=== PATIENT | female | born 1935 | race Caucasian/White ===

== ENCOUNTER 2016-09-07 16:22 | Observation (INO) | payer MEDICARE ==
[~2016-09-07 16:22] MED LIST: Sodium Chloride 0.9% 1,000 ML BAG ONE
[2016-09-07 17:07] LABS: #Basophils 0.1 thou/uL (0.0-0.2); #Lymphocytes 1.2 thou/uL (1.20-3.40); #Monocytes 0.9 thou/uL (0.11-0.59); #Neutrophils 11.1 thou/uL (1.40-6.50); %Basophils 0.6 % (0.0-1.0); %Eosinophils 0.2 % (0.0-10.0); %Lymphocytes 8.7 % (21.0-51.0); %Monocytes 6.5 % (0.0-10.0); %Neutrophils 84.1 % (42.0-75.0); Hemoglobin 12.9 g/dL (12.0-16.0); Mean Corpuscular HGB CONC 33.7 g/dL (32.0-36.0); Mean Corpuscular Hemoglobin 30.8 pg (27.0-31.0); Mean Corpuscular Volume 91.2 fl (81.0-99.0); Mean Platelet Volume 6.9 fL (7.4-10.4); Platelet Count 160 thou/uL (130-400); RBC Distribution Width 12.5 % (11.5-14.5); Red Blood Cell (RBC) Count 4.18 mill/uL (4.20-5.40); White Blood Cell (WBC) Count 13.2 thou/uL (4.8-10.8)
[2016-09-07 17:21] LABS: ALT (SGPT) 17 U/L (8-55); AST (SGOT) 21 U/L (5-34); Albumin 3.9 g/dL (3.4-4.8); Alkaline Phosphatase 58 U/L (40-150); Anion Gap 15 mmol/L (10-20); Bilirubin, Total 1.2 mg/dL (0.2-1.2); Calc. Creatinine Clearance 0 mL/min (70-130); Calcium 9.2 mg/dL (7.8-10.44); Carbon Dioxide 23 mmol/L (23-31); Chloride 100 mmol/L (98-107); Estimated GFR-MDRD 67; Globulin 3.1 g/dL (2.4-3.5); Glucose 190 mg/dL (83-110); Potassium 3.4 mmol/L (3.5-5.1); Sodium 135 mmol/L (136-145)
[2016-09-07 17:23] LABS: BUN (Urea Nitrogen) 15 mg/dL (9.8-20.1)
[2016-09-07 18:01] LABS: Bilirubin Negative (Negative); Blood, Urine Trace (Negative); Clarity Clear (Clear); Glucose, Urine (Dipstick) 100 mg/dL (Negative); Leukocyte Negative (Negative); Nitrite Negative (Negative); Protein, Urine (Dipstick) Trace mg/dL (Neg-Trace); Urobilinogen 0.2 mg/dL (0.2-1.0)
[2016-09-07 18:25] LABS: Bacteria/HPF Rare-Few HPF (None Seen); RBC/HPF 0-3 HPF (0-3); Squamous Epithelial 0-3 HPF (0-3); WBC/HPF 0-3 HPF (0-3)
[2016-09-07] MEDS ORDERED: Acetaminophen 500 MG TAB ONE (19:19)
[2016-09-07 20:38] VITALS: BMI 25.9
[2016-09-07] MEDS ORDERED: Ondansetron ODT 4 MG TAB PO PRN (20:46)
[2016-09-07] MEDS ORDERED: Acetaminophen 325 MG TAB PO PRN (20:46)
[2016-09-07] MEDS: Sodium Chloride 0.9% 1,000 ML IV SCH (22:04)
[2016-09-08 05:10] LABS: Anion Gap 15 mmol/L (10-20); Calc. Creatinine Clearance 70 mL/min (70-130); Calcium 8.4 mg/dL (7.8-10.44); Carbon Dioxide 22 mmol/L (23-31); Chloride 106 mmol/L (98-107); Estimated GFR-MDRD 78; Glucose 173 mg/dL (83-110); Sodium 140 mmol/L (136-145)
[2016-09-08 05:12] LABS: #Basophils 0.1 thou/uL (0.0-0.2); #Eosinphils 0.1 thou/uL (0.0-0.7); #Lymphocytes 1.1 thou/uL (1.20-3.40); #Monocytes 0.7 thou/uL (0.11-0.59); #Neutrophils 7.5 thou/uL (1.40-6.50); %Basophils 0.7 % (0.0-1.0); %Eosinophils 1.4 % (0.0-10.0); %Lymphocytes 11.5 % (21.0-51.0); %Monocytes 7.2 % (0.0-10.0); %Neutrophils 79.3 % (42.0-75.0); Hemoglobin 11.9 g/dL (12.0-16.0); Mean Corpuscular HGB CONC 35.1 g/dL (32.0-36.0); Mean Corpuscular Hemoglobin 32.1 pg (27.0-31.0); Mean Corpuscular Volume 91.4 fl (81.0-99.0); Mean Platelet Volume 8.1 fL (7.4-10.4); PLT Morphology Comment Appears Decreased; Platelet Count 119 thou/uL (130-400); Red Blood Cell (RBC) Count 3.69 mill/uL (4.20-5.40); White Blood Cell (WBC) Count 9.5 thou/uL (4.8-10.8)
[2016-09-08 05:14] LABS: BUN (Urea Nitrogen) 12 mg/dL (9.8-20.1); Manual Diff?? NO
[2016-09-08] MEDS ORDERED: Sodium Chloride 0.9% 1,000 ML BAG ONE (05:54)
[2016-09-08] MEDS: Sodium Chloride 0.9% 1,000 ML IV SCH (07:31)
[2016-09-08 07:52] VITALS: BP 110/58; TEMP 99.2
[2016-09-08] MEDS ORDERED: metFORMIN HCl XR 500 MG TAB PO SCH ×2 (08:00→09:00)
[2016-09-08] MEDS ORDERED: Polyethylene Glycol 3350 17 GM Packet PO SCH (09:00)
[2016-09-08] MEDS ORDERED: Non-Formulary Item 1 EACH (Lisinopril [Lisinopril] 40 MG) PO SCH (09:00)
[2016-09-08] MEDS ORDERED: Non-Formulary Item 1 EACH (Metformin Hcl [Metformin Hcl Er] 500 MG) PO SCH ×2 (09:00)
[2016-09-08] MEDS ORDERED: Lisinopril 10 MG TAB PO SCH ×2 (09:00)
[2016-09-08] MEDS ORDERED: Hydrochlorothiazide 25 MG TAB PO SCH ×2 (09:00)
--- NOTE | 2016-09-08 13:38 | SS ---
ADMITTING PHYSICIAN: Coby Zeng M.D. CHIEF COMPLAINT: Subjective fever, chills, generalized weakness and body aches. BRIEF HOSPITAL COURSE: Ms. Dinh is an 81-year-old female with history of diabetes type 2 and hypertension with PCP in [facility] [place] who presented today to the emergency room due to subjective fever, weakness, chills, sore throat. The patient states symptoms started 2 days ago and have progressively worsened. She also stated weakness progressed and she had a fall at her home yesterday where she hurt her back. She reports some abdominal pain, some mild anorexia. No vomiting, no diarrhea, no sick contacts at home. The patient lives in a home by herself, her daughter lives close by and checks up on her frequently. The patient was evaluated in the emergency room. She had a 100.4 temperature. She was visibly wobbly and weak. Urine showed no acute urinary symptoms. Flu test was negative. WBC was slightly elevated. In the emergency room, she was given some IV fluids but she was still very weak. She was noted to be wobbly on her feet and the recommendation was to admit the patient for observation for IV fluids due to dehydration. The patient was admitted and placed in observation with IV fluids overnight. She tolerated IV fluids. This morning when I evaluated her, she stated she felt much better. She was able to have her breakfast. The patient's daughter visited with her and during my second visit we were able to walk about 500 feet without a walker with no wobbling but some slow gait noted. The patient states she has some balance issues and PCP had told her she has some cerebellar issues and she is awaiting primary care physician at [facility] to sign up on home health for her. She was excited to be discharged. The patient was discharged home in a stable condition under the care of her daughter and followup instructions with PCP within 1 week. DISCHARGE PHYSICAL EXAMINATION: VITAL SIGNS: Temperature 98.3, pulse 86, respiration rate 18, blood pressure 133/64. FOLLOWUP: The patient advised to follow up with primary care physician in about a week and also enforced using a walker which she barely uses, but uses it when she feels weak and also speak to her primary care physician about home health services with physical therapy. PAST MEDICAL HISTORY: Diabetes type 2, hypertension. SOCIAL HISTORY: Denies tobacco use, denies alcohol use, denies illicit drug use. Lives at home by herself. ALLERGIES: No known drug allergies. CODE STATUS: The patient is a DNR. FAMILY HISTORY: Denies any significant heart or thyroid disease. MEDICATIONS: Lisinopril 40 mg daily, hydrochlorothiazide 25 mg daily, metformin 500 mg daily. REVIEW OF SYSTEMS: Complete review of systems negative otherwise mentioned in the HPI or below. CONSTITUTIONAL: Denies weight loss, weight gain. CARDIOVASCULAR: Denies chest pain, palpitation, orthopnea. RESPIRATORY: Complains of cough, shortness of breath. GI: Denies abdominal pain. Complains of nausea. GENITOURINARY: Denies urinary frequency, urgency, dysuria. MUSCULOSKELETAL: Complains of generalized weakness. Denies joint pain or swelling. NEUROLOGIC: Complains of some dizziness, wobbling in her legs. SKIN: Denies rash, bleeding. PHYSICAL EXAMINATION: VITAL SIGNS: Temperature 98.3, pulse 86, respiration rate 18, O2 96% on room air, blood pressure 133/64. GENERAL: Alert, awake, oriented female lying comfortably in bed, was able to sit up and stand up and walk with no discomfort. HEENT: Normocephalic, atraumatic. Pupils are reactive, round, equal to light. Sclerae nonicteric. Moist mucous membranes without erythema or exudate. NECK: Supple, no thyromegaly or lymphadenopathy. CARDIOVASCULAR: S1, S2 heard. Regular rate, no murmurs. LUNGS: Clear to auscultation bilaterally. ABDOMEN: Positive bowel sounds, soft, nontender, nondistended, no rigidity, no guarding or rebound. EXTREMITIES: No calf edema or tenderness. No clubbing or cyanosis. NEUROLOGIC: Alert, awake, oriented x3. No focal deficits. ASSESSMENT AND PLAN: The patient is an 81-year-old female who presented to the emergency room with fever, chills, cough, weakness, admitted for viral syndrome for observation and IV fluids. This a.m. the patient felt much better and was able to tolerate her breakfast with no vomiting, no distress , was able to stand and walk without a rolling walker with no falls, no wobbly, no discomfort. The patient is excited to go back home and discharged back to her home under the care of her daughter. BRIT
== END 2016-09-08 10:00 | disposition home or self-care (01) ==
LOC: MADERS 16:22 → MADMS 19:08
PROVIDERS: ADMIT Family Medicine; ATTEND Family Medicine
DX: B34.9 Viral infection, unspecified (principal); E11.9 Type 2 diabetes mellitus without complications; I10 Essential (primary) hypertension; Z79.84 Long term (current) use of oral hypoglycemic drugs; Z79.899 Other long term (current) drug therapy; Z66 Do not resuscitate
CPT/HCPCS: 36415; 36416; 80048; 80053; 81003; 81015; 85025; 96360; 96361; A4353; G0378; J7050

== ENCOUNTER 2017-11-15 19:38 | Emergency (ER) | payer MEDICARE ==
--- NOTE | 2017-11-15 20:55 | RAD ---
FOUR VIEWS OF THE RIGHT FOOT: 11/15/17 INDICATION: Tripped and fell. COMPARISON: None. FINDINGS: Scattered midfoot and forefoot osteoarthrosis. No definite acute fracture or subluxation is evident. No radiopaque foreign body is noted. IMPRESSION: No acute osseous abnormality. POS: [facility]
== END 2017-11-15 20:52 | disposition home or self-care (01) ==
LOC: MADERS 19:38
DX: S93.601A Unspecified sprain of right foot, initial encounter (principal); I10 Essential (primary) hypertension; E11.9 Type 2 diabetes mellitus without complications; W19.XXXA Unspecified fall, initial encounter

== ENCOUNTER 2017-12-17 16:28 | Emergency (ER) | payer MEDICARE ==
[2017-12-17] MEDS ORDERED: Acetaminophen 500 MG TAB ONE (16:56)
--- NOTE | 2017-12-17 17:17 | RAD ---
FOUR VIEWS OF THE RIGHT KNEE: 12/17/17 COMPARISON: None. HISTORY: Right knee injury. FINDINGS: there is a transverse fracture of the patella extending into the patellofemoral interspace with no si gnificant displacement. There is an associated knee joint effusion and there is soft tissue swelling seen anteriorly. No additional fracture. No evidence for dislocation. IMPRESSION: Patellar fracture as described above. POS: [facility]
== END 2017-12-17 17:55 | disposition home or self-care (01) ==
LOC: MADERS 16:28
DX: S82.001A Unspecified fracture of right patella, initial encounter for closed fracture (principal); S00.83XA Contusion of other part of head, initial encounter; E11.9 Type 2 diabetes mellitus without complications; I10 Essential (primary) hypertension; W01.0XXA Fall on same level from slipping, tripping and stumbling without subsequent striking against object, initial encounter

== ENCOUNTER 2017-12-19 22:07 | Emergency (ER) | payer MEDICARE ==
[2017-12-19] MEDS ORDERED: Ondansetron HCl/PF 4 MG/2 ML Vial ONE (22:40)
[2017-12-19 23:01] LABS: #Basophils 0.1 thou/uL (0.0-0.2); #Eosinphils 0.1 thou/uL (0.0-0.7); #Lymphocytes 1.5 thou/uL (1.20-3.40); #Monocytes 0.6 thou/uL (0.11-0.59); #Neutrophils 4.2 thou/uL (1.40-6.50); %Basophils 1.1 % (0.0-1.0); %Eosinophils 2.1 % (0.0-10.0); %Lymphocytes 22.7 % (21.0-51.0); %Monocytes 9.1 % (0.0-10.0); Hemoglobin 11.4 g/dL (12.0-16.0); Mean Corpuscular HGB CONC 33.9 g/dL (32.0-36.0); Mean Corpuscular Hemoglobin 29.9 pg (27.0-31.0); Mean Corpuscular Volume 88.3 fL (78.0-98.0); Mean Platelet Volume 7.4 fL (7.4-10.4); Platelet Count 179 thou/uL (130-400); RBC Distribution Width 11.7 % (11.5-14.5); Red Blood Cell (RBC) Count 3.82 mill/uL (4.20-5.40); White Blood Cell (WBC) Count 6.5 thou/uL (4.8-10.8)
[2017-12-19 23:12] LABS: ALT (SGPT) 13 U/L (8-55); AST (SGOT) 18 U/L (5-34); Albumin 3.7 g/dL (3.4-4.8); Alkaline Phosphatase 44 U/L (40-150); Anion Gap 19 mmol/L (10-20); BUN (Urea Nitrogen) 15 mg/dL (9.8-20.1); Bilirubin, Total 0.6 mg/dL (0.2-1.2); Calc. Creatinine Clearance 0 mL/min (70-130); Calcium 9.4 mg/dL (7.8-10.44); Carbon Dioxide 19 mmol/L (23-31); Chloride 102 mmol/L (98-107); Estimated GFR-MDRD 49; Globulin 3.7 g/dL (2.4-3.5); Glucose 233 mg/dL (83-110); Potassium 3.8 mmol/L (3.5-5.1); Protein, Total 7.4 g/dL (6.0-8.3); Sodium 136 mmol/L (136-145)
[2017-12-19 23:18] LABS: CKMB 1.7 ng/mL (0-6.6); Troponin I 0.015 ng/mL (< 0.028)
== END 2017-12-20 | disposition home or self-care (01) ==
LOC: MADERS 22:07
DX: E86.0 Dehydration (principal); M81.0 Age-related osteoporosis without current pathological fracture; E11.9 Type 2 diabetes mellitus without complications; I10 Essential (primary) hypertension
CPT/HCPCS: 36415; 80053; 82553; 84484; 85025; 93005; 94760; 96361; 96374; J2405; J7050

== ENCOUNTER 2018-01-12 13:49 | Outpatient (CLI) | payer MEDICARE ==
--- NOTE | 2018-01-12 15:24 | RAD ---
TWO VIEWS RIGHT KNEE: HISTORY: Fracture. COMPARISON: 12/17/17. FINDINGS: Horizontally oriented patella fracture is noted. The fracture is unchanged. No significant healing. There is persistent suprapatellar effusion. IMPRESSION: Stable patella fracture. POS: [facility]
== END 2018-01-12 13:50 | disposition home or self-care (01) ==
LOC: MADRAD 13:49
PROVIDERS: ATTEND Orthopaedic Surgery
DX: S82.001A Unspecified fracture of right patella, initial encounter for closed fracture (principal)

== ENCOUNTER 2018-02-09 13:33 | Outpatient (CLI) | payer MEDICARE ==
--- NOTE | 2018-02-09 17:19 | RAD ---
TWO VIEWS RIGHT KNEE: DATE: 02/09/2018. HISTORY: Right patellar fracture. COMPARISON: 01/12/2018. FINDINGS: The previously noted fracture involving the mid portion of the patella is again noted. The fracture lucency does persist but is less perceptible and there is mild sclerosis along the fracture margin. No additional fracture is seen, and there is no dislocation identified. Subcutaneous soft tissue swe lling anterior to the knee and there is a small joint effusion present. IMPRESSION: Fracture mid portion right patella. Fracture lucency is less perceptible but does persist. POS: [facility]
== END 2018-02-09 13:34 | disposition home or self-care (01) ==
LOC: MADRAD 13:33
PROVIDERS: ATTEND Orthopaedic Surgery
DX: S82.001A Unspecified fracture of right patella, initial encounter for closed fracture (principal)

== ENCOUNTER 2020-12-16 20:03 | Emergency (ER) | payer MEDICARE ==
[2020-12-16] MEDS ORDERED: Morphine 4 MG/ML VIAL ONE ×3 (20:24→23:31)
[2020-12-16 21:00] LABS: #Basophils 0.1 thou/uL (0.0-0.2); #Eosinphils 0.1 thou/uL (0.0-0.7); #Lymphocytes 1.2 thou/uL (1.20-3.40); #Monocytes 0.5 thou/uL (0.11-0.59); #Neutrophils 4.2 thou/uL (1.40-6.50); %Basophils 1.1 % (0.0-1.0); %Eosinophils 1.8 % (0.0-10.0); %Lymphocytes 20.1 % (21.0-51.0); %Monocytes 8.4 % (0.0-10.0); %Neutrophils 68.5 % (42.0-75.0); Hemoglobin 11.8 g/dL (12.0-16.0); Mean Corpuscular HGB CONC 31.9 g/dL (32.0-36.0); Mean Corpuscular Hemoglobin 30.3 pg (27.0-31.0); Mean Corpuscular Volume 95.1 fL (78.0-98.0); Mean Platelet Volume 6.4 fL (7.4-10.4); Platelet Count 191 thou/uL (130-400); RBC Distribution Width 13.1 % (11.5-14.5); White Blood Cell (WBC) Count 6.1 thou/uL (4.8-10.8)
[2020-12-16 21:10] LABS: INR-International Normal Ratio 1.1; Prothrombin Time 14.5 sec (12.0-14.7)
[2020-12-16 21:20] LABS: ALT (SGPT) 14 U/L (8-55); AST (SGOT) 20 U/L (5-34); Albumin 3.8 g/dL (3.4-4.8); Alkaline Phosphatase 51 U/L (40-110); Anion Gap 16 mmol/L (10-20); BUN (Urea Nitrogen) 13 mg/dL (9.8-20.1); Bilirubin, Total 0.3 mg/dL (0.2-1.2); Calc. Creatinine Clearance 0 mL/min (70-130); Carbon Dioxide 24 mmol/L (23-31); Chloride 103 mmol/L (98-107); Globulin 2.6 g/dL (2.4-3.5); Glucose 178 mg/dL (83-110); Potassium 3.6 mmol/L (3.5-5.1); Protein, Total 6.4 g/dL (5.8-8.1); Sodium 139 mmol/L (136-145)
[2020-12-16 22:51] LABS: Bilirubin Negative (Negative); Blood, Urine Negative (Negative); Clarity Clear (Clear); Glucose, Urine (Dipstick) Negative (Negative); Ketone, Urine 15 mg/dL (Negative); Leukocyte Negative (Negative); Nitrite Negative (Negative); Protein, Urine (Dipstick) Negative (Neg-Trace); Urobilinogen 0.2 mg/dL (Less than 2)
== END 2020-12-16 23:34 | disposition short-term general hospital (02) ==
LOC: MADERS 20:03
DX: S72.142A Displaced intertrochanteric fracture of left femur, initial encounter for closed fracture (principal); M81.0 Age-related osteoporosis without current pathological fracture; E11.9 Type 2 diabetes mellitus without complications; I10 Essential (primary) hypertension; W19.XXXA Unspecified fall, initial encounter
CPT/HCPCS: 51702; 80053; 81003; 85025; 85610; 93005; 96374; 96376; J2270

== ENCOUNTER 2020-12-22 17:17 | Inpatient (IN) | payer MEDICARE ==
[2020-12-22] MEDS: Acetaminophen 325 MG TAB PO SCH (22:36)
[2020-12-23] MEDS: Acetaminophen 325 MG TAB PO SCH ×5 (04:13→21:56)
[2020-12-23 05:40] LABS: Mean Corpuscular Hemoglobin 31.6 pg (27.0-31.0); Mean Corpuscular Volume 95.6 fL (78.0-98.0); Mean Platelet Volume 6.2 fL (7.4-10.4); Platelet Count 229 thou/uL (130-400); RBC Distribution Width 13.7 % (11.5-14.5); Red Blood Cell (RBC) Count 2.52 mill/uL (4.20-5.40)
[2020-12-23 05:55] LABS: Anion Gap 13 mmol/L (10-20); BUN (Urea Nitrogen) 9 mg/dL (9.8-20.1); Calc. Creatinine Clearance 72 mL/min (70-130); Calcium 8.5 mg/dL (7.8-10.44); Carbon Dioxide 27 mmol/L (23-31); Chloride 105 mmol/L (98-107); Glucose 116 mg/dL (83-110); Potassium 3.3 mmol/L (3.5-5.1); Sodium 142 mmol/L (136-145)
[2020-12-23] MEDS: metFORMIN 500 MG TAB PO SCH ×2 (08:15→16:43)
[2020-12-23] MEDS: Polyethylene Glycol 3350 17 GM Packet PO SCH (08:15)
[2020-12-23] MEDS: Gabapentin 300 MG CAP PO SCH ×3 (08:15→21:57)
[2020-12-23] MEDS: Ferrous Sulfate 325 MG TAB PO SCH ×2 (08:15→21:57)
[2020-12-23] MEDS ORDERED: Potassium Bicarbonate/Cit Ac 20 MEQ TAB PO SCH (11:00)
[2020-12-23] MEDS ORDERED: Potassium Chloride 10 MEQ TAB PO SCH (11:00)
[2020-12-23] MEDS ORDERED: Potassium Chloride 20 MEQ TAB PO SCH (11:00)
[2020-12-23] MEDS ORDERED: Alendronate Sodium 70 mg Tablet PO SCH (13:00)
[2020-12-24] MEDS: Acetaminophen 325 MG TAB PO SCH ×4 (05:00→21:30)
[2020-12-24] MEDS ORDERED: Alendronate Sodium 70 mg Tablet PO SCH (06:00)
[2020-12-24] MEDS ORDERED: Potassium Chloride 20 MEQ TAB PO SCH (08:00)
[2020-12-24] MEDS ORDERED: Potassium Chloride 10 MEQ TAB PO SCH (08:00)
[2020-12-24] MEDS: Gabapentin 300 MG CAP PO SCH ×3 (08:31→20:13)
[2020-12-24] MEDS: metFORMIN 500 MG TAB PO SCH ×2 (08:31→16:54)
[2020-12-24] MEDS: Ferrous Sulfate 325 MG TAB PO SCH ×2 (08:31→20:13)
[2020-12-24] MEDS: Potassium Bicarbonate/Cit Ac 20 MEQ TAB PO SCH (08:31)
[2020-12-24] MEDS: Polyethylene Glycol 3350 17 GM Packet PO SCH (08:32)
[2020-12-25] MEDS: Acetaminophen 325 MG TAB PO SCH ×4 (04:01→21:35)
[2020-12-25] MEDS: Ferrous Sulfate 325 MG TAB PO SCH ×2 (08:24→21:35)
[2020-12-25] MEDS: Polyethylene Glycol 3350 17 GM Packet PO SCH (08:24)
[2020-12-25] MEDS: metFORMIN 500 MG TAB PO SCH ×2 (08:24→16:56)
[2020-12-25] MEDS: Gabapentin 300 MG CAP PO SCH ×2 (08:24→21:36)
[2020-12-25] MEDS: Potassium Bicarbonate/Cit Ac 20 MEQ TAB PO SCH (08:33)
[2020-12-26] MEDS: Acetaminophen 325 MG TAB PO SCH ×4 (05:26→21:42)
[2020-12-26 05:53] LABS: #Basophils 0.1 thou/uL (0.0-0.2); #Eosinphils 0.3 thou/uL (0.0-0.7); #Lymphocytes 1.1 thou/uL (1.20-3.40); #Monocytes 0.7 thou/uL (0.11-0.59); #Neutrophils 3.7 thou/uL (1.40-6.50); %Basophils 2.2 % (0.0-1.0); %Eosinophils 4.9 % (0.0-10.0); %Lymphocytes 19.2 % (21.0-51.0); %Monocytes 11.3 % (0.0-10.0); %Neutrophils 62.5 % (42.0-75.0); Hemoglobin 8.6 g/dL (12.0-16.0); Mean Corpuscular HGB CONC 31.2 g/dL (32.0-36.0); Mean Corpuscular Hemoglobin 30.3 pg (27.0-31.0); Mean Corpuscular Volume 97.2 fL (78.0-98.0); Mean Platelet Volume 5.6 fL (7.4-10.4); Platelet Count 338 thou/uL (130-400); RBC Distribution Width 13.8 % (11.5-14.5); Red Blood Cell (RBC) Count 2.84 mill/uL (4.20-5.40)
[2020-12-26 06:05] LABS: Anion Gap 13 mmol/L (10-20); BUN (Urea Nitrogen) 12 mg/dL (9.8-20.1); Calc. Creatinine Clearance 65 mL/min (70-130); Calcium 8.8 mg/dL (7.8-10.44); Carbon Dioxide 28 mmol/L (23-31); Chloride 105 mmol/L (98-107); Glucose 161 mg/dL (83-110); Potassium 3.9 mmol/L (3.5-5.1); Sodium 142 mmol/L (136-145)
[2020-12-26] MEDS: Potassium Bicarbonate/Cit Ac 20 MEQ TAB PO SCH (08:18)
[2020-12-26] MEDS: Polyethylene Glycol 3350 17 GM Packet PO SCH (08:18)
[2020-12-26] MEDS: Ferrous Sulfate 325 MG TAB PO SCH ×2 (08:18→20:42)
[2020-12-26] MEDS: metFORMIN 500 MG TAB PO SCH ×2 (08:18→16:30)
[2020-12-26] MEDS: Gabapentin 300 MG CAP PO SCH ×2 (08:19→20:41)
[2020-12-27] MEDS: Acetaminophen 325 MG TAB PO SCH ×4 (03:45→21:18)
[2020-12-27] MEDS: Polyethylene Glycol 3350 17 GM Packet PO SCH (08:57)
[2020-12-27] MEDS: Ferrous Sulfate 325 MG TAB PO SCH ×2 (08:57→21:19)
[2020-12-27] MEDS: Gabapentin 300 MG CAP PO SCH ×2 (08:57→21:19)
[2020-12-27] MEDS: Potassium Bicarbonate/Cit Ac 20 MEQ TAB PO SCH (08:57)
[2020-12-27] MEDS: metFORMIN 500 MG TAB PO SCH ×2 (08:58→16:41)
[2020-12-27] MEDS: Senokot S 8.6-50 MG TAB PO PRN (21:20)
[2020-12-27] MEDS: Cyclobenzaprine 10 MG TAB PO PRN (23:47)
[2020-12-28] MEDS: Acetaminophen 325 MG TAB PO SCH ×4 (02:58→22:11)
[2020-12-28] MEDS: metFORMIN 500 MG TAB PO SCH ×2 (08:51→17:17)
[2020-12-28] MEDS: Cyclobenzaprine 10 MG TAB PO PRN (08:51)
[2020-12-28] MEDS: Gabapentin 300 MG CAP PO SCH ×2 (08:51→20:16)
[2020-12-28] MEDS: Senokot S 8.6-50 MG TAB PO PRN (08:51)
[2020-12-28] MEDS: Potassium Bicarbonate/Cit Ac 20 MEQ TAB PO SCH (08:52)
[2020-12-28] MEDS: Ferrous Sulfate 325 MG TAB PO SCH ×2 (08:52→20:15)
[2020-12-28] MEDS: Polyethylene Glycol 3350 17 GM Packet PO SCH (08:52)
[2020-12-29] MEDS: Cyclobenzaprine 10 MG TAB PO PRN (00:59)
[2020-12-29] MEDS: Acetaminophen 325 MG TAB PO SCH ×2 (04:53→11:25)
[2020-12-29] MEDS: metFORMIN 500 MG TAB PO SCH ×2 (08:21→18:03)
[2020-12-29] MEDS: Ferrous Sulfate 325 MG TAB PO SCH ×2 (08:22→18:03)
[2020-12-29] MEDS: Gabapentin 300 MG CAP PO SCH ×2 (08:22→20:43)
[2020-12-29] MEDS: Potassium Bicarbonate/Cit Ac 20 MEQ TAB PO SCH (08:22)
[2020-12-29] MEDS: Polyethylene Glycol 3350 17 GM Packet PO SCH (08:23)
[2020-12-29] MEDS ORDERED: Acetaminophen/Codeine 30-300mg Tablet PO PRN (13:28)
[2020-12-29] MEDS ORDERED: Acetaminophen 325 MG TAB PO PRN (13:30)
[2020-12-29] MEDS: Acetaminophen/Codeine 30-300mg Tablet PO SCH (18:03)
[2020-12-30] MEDS: Acetaminophen/Codeine 30-300mg Tablet PO SCH ×2 (05:47→18:14)
[2020-12-30] MEDS ORDERED: Alendronate Sodium 70 mg Tablet PO SCH ×2 (06:00)
[2020-12-30] MEDS ORDERED: Acetaminophen/Codeine 30-300mg Tablet PO SCH (06:00)
[2020-12-30] MEDS: Ferrous Sulfate 325 MG TAB PO SCH ×2 (08:38→18:15)
[2020-12-30] MEDS: metFORMIN 500 MG TAB PO SCH ×2 (08:39→18:14)
[2020-12-30] MEDS: Polyethylene Glycol 3350 17 GM Packet PO SCH (08:39)
[2020-12-30] MEDS: Potassium Bicarbonate/Cit Ac 20 MEQ TAB PO SCH (08:39)
[2020-12-30] MEDS: Gabapentin 300 MG CAP PO SCH ×2 (08:39→21:55)
[2020-12-31 01:54] LABS: SARS-CoV-2 PCR by NAA Not Detected (NotDetected)
[2020-12-31 02:15] LABS: Bilirubin Negative (Negative); Blood, Urine Negative (Negative); Clarity Clear (Clear); Glucose, Urine (Dipstick) Negative (Negative); Ketone, Urine Negative (Negative); Leukocyte Negative (Negative); Nitrite Negative (Negative); Protein, Urine (Dipstick) Negative (Neg-Trace); Specific Gravity, Urine 1.015 (1.005-1.030); Urobilinogen 0.2 mg/dL (Less than 2)
[2020-12-31] MEDS: Acetaminophen/Codeine 30-300mg Tablet PO SCH ×2 (05:02→17:28)
[2020-12-31] MEDS: Cyclobenzaprine 10 MG TAB PO PRN (07:39)
[2020-12-31] MEDS: Potassium Bicarbonate/Cit Ac 20 MEQ TAB PO SCH (08:52)
[2020-12-31] MEDS: Ferrous Sulfate 325 MG TAB PO SCH ×2 (08:52→17:27)
[2020-12-31] MEDS: Gabapentin 300 MG CAP PO SCH ×2 (08:52→20:32)
[2020-12-31] MEDS: Polyethylene Glycol 3350 17 GM Packet PO SCH (08:52)
[2020-12-31] MEDS: metFORMIN 500 MG TAB PO SCH ×2 (08:52→17:28)
[2021-01-01] MEDS: Acetaminophen/Codeine 30-300mg Tablet PO SCH ×2 (05:53→17:03)
[2021-01-01] MEDS: metFORMIN 500 MG TAB PO SCH ×2 (09:03→17:03)
[2021-01-01] MEDS: Gabapentin 300 MG CAP PO SCH ×2 (09:03→21:18)
[2021-01-01] MEDS: Potassium Bicarbonate/Cit Ac 20 MEQ TAB PO SCH (09:04)
[2021-01-01] MEDS: Polyethylene Glycol 3350 17 GM Packet PO SCH (09:04)
[2021-01-01] MEDS: Ferrous Sulfate 325 MG TAB PO SCH ×2 (09:04→17:03)
[2021-01-01 11:34] VITALS: BMI 25.6
[2021-01-02] MEDS: Acetaminophen/Codeine 30-300mg Tablet PO SCH ×2 (05:58→17:34)
[2021-01-02] MEDS: Ferrous Sulfate 325 MG TAB PO SCH ×2 (09:02→17:33)
[2021-01-02] MEDS: Gabapentin 300 MG CAP PO SCH ×2 (09:02→20:09)
[2021-01-02] MEDS: Polyethylene Glycol 3350 17 GM Packet PO SCH (09:02)
[2021-01-02] MEDS: metFORMIN 500 MG TAB PO SCH ×2 (09:02→17:33)
[2021-01-02] MEDS: Potassium Bicarbonate/Cit Ac 20 MEQ TAB PO SCH (09:02)
[2021-01-03] MEDS: Acetaminophen/Codeine 30-300mg Tablet PO SCH ×2 (05:37→17:43)
[2021-01-03] MEDS: Polyethylene Glycol 3350 17 GM Packet PO SCH (08:39)
[2021-01-03] MEDS: Gabapentin 300 MG CAP PO SCH ×2 (08:39→20:44)
[2021-01-03] MEDS: Potassium Bicarbonate/Cit Ac 20 MEQ TAB PO SCH (08:40)
[2021-01-03] MEDS: metFORMIN 500 MG TAB PO SCH ×2 (08:40→17:02)
[2021-01-03] MEDS: Ferrous Sulfate 325 MG TAB PO SCH ×2 (08:40→17:02)
[2021-01-04] MEDS: Acetaminophen/Codeine 30-300mg Tablet PO SCH ×2 (06:10→17:18)
[2021-01-04] MEDS: metFORMIN 500 MG TAB PO SCH ×2 (08:30→17:18)
[2021-01-04] MEDS: Ferrous Sulfate 325 MG TAB PO SCH ×2 (08:31→17:18)
[2021-01-04] MEDS: Potassium Bicarbonate/Cit Ac 20 MEQ TAB PO SCH (08:31)
[2021-01-04] MEDS: Gabapentin 300 MG CAP PO SCH ×2 (08:33→21:47)
[2021-01-04] MEDS: Polyethylene Glycol 3350 17 GM Packet PO SCH (08:35)
[2021-01-04 11:45] LABS: Bilirubin Negative (Negative); Blood, Urine Negative (Negative); Clarity Clear (Clear); Glucose, Urine (Dipstick) Negative (Negative); Ketone, Urine Negative (Negative); Leukocyte Negative (Negative); Nitrite Negative (Negative); Protein, Urine (Dipstick) Negative (Neg-Trace); Specific Gravity, Urine 1.015 (1.005-1.030)
[2021-01-04 11:46] LABS: Urine Culture Reflex No No
[2021-01-04 11:53] LABS: Bacteria/HPF Rare-Few HPF (None Seen); RBC/HPF None Seen HPF (0-3); Squamous Epithelial 0-3 HPF (0-3); WBC/HPF None Seen HPF (0-3)
[2021-01-05] MEDS: Acetaminophen/Codeine 30-300mg Tablet PO SCH (05:34)
[2021-01-05] MEDS: Potassium Bicarbonate/Cit Ac 20 MEQ TAB PO SCH (07:59)
[2021-01-05] MEDS: Ferrous Sulfate 325 MG TAB PO SCH (07:59)
[2021-01-05] MEDS: metFORMIN 500 MG TAB PO SCH (07:59)
[2021-01-05] MEDS: Gabapentin 300 MG CAP PO SCH (08:02)
[2021-01-05] MEDS: Polyethylene Glycol 3350 17 GM Packet PO SCH (08:03)
[2021-01-05 16:49] VITALS: BP 121/81; TEMP 98.7
== END 2021-01-05 16:33 | DRG 560 ==
LOC: MADMS 18:27
PROVIDERS: ADMIT Family Medicine; ATTEND Family Medicine
PROC: 0T9B70Z Drainage of Bladder with Drainage Device, Via Natural or Artificial Opening (ICD-10-PCS; principal; 2020-12-31)
DX: S72.142D Displaced intertrochanteric fracture of left femur, subsequent encounter for closed fracture with routine healing (principal); D62 Acute posthemorrhagic anemia; N39.0 Urinary tract infection, site not specified; E87.1 Hypo-osmolality and hyponatremia; Z66 Do not resuscitate; M81.0 Age-related osteoporosis without current pathological fracture; E11.9 Type 2 diabetes mellitus without complications; I10 Essential (primary) hypertension; R53.81 Other malaise; R91.8 Other nonspecific abnormal finding of lung field; E87.6 Hypokalemia; R26.81 Unsteadiness on feet; R26.89 Other abnormalities of gait and mobility; A49.9 Bacterial infection, unspecified; N99.89 Other postprocedural complications and disorders of genitourinary system; R33.8 Other retention of urine; Z20.822 Contact with and (suspected) exposure to COVID-19; W18.30XD Fall on same level, unspecified, subsequent encounter; Z79.84 Long term (current) use of oral hypoglycemic drugs; Z79.899 Other long term (current) drug therapy; Z91.81 History of falling
CPT/HCPCS: 36415; 36416; 71045; 80048; 81001; 81003; 85025; 85027; 87086; U0003; U0005

== ENCOUNTER 2021-01-07 18:21 | Emergency (ER) | payer MEDICARE ==
[2021-01-07] MEDS ORDERED: Ibuprofen 600 MG TAB ONE (19:34)
[2021-01-07] MEDS ORDERED: Sodium Chloride 0.9% 1,000 ML ONE (19:34)
[2021-01-07 19:52] LABS: #Basophils 0.1 thou/uL (0.0-0.2); #Monocytes 1.3 thou/uL (0.11-0.59); #Neutrophils 7.3 thou/uL (1.40-6.50); %Basophils 0.6 % (0.0-1.0); %Eosinophils 0.1 % (0.0-10.0); %Lymphocytes 10.8 % (21.0-51.0); %Monocytes 13.6 % (0.0-10.0); %Neutrophils 74.9 % (42.0-75.0); Hemoglobin 9.5 g/dL (12.0-16.0); Mean Corpuscular HGB CONC 31.1 g/dL (32.0-36.0); Mean Corpuscular Hemoglobin 30.7 pg (27.0-31.0); Mean Platelet Volume 6.1 fL (7.4-10.4); Platelet Count 330 thou/uL (130-400); RBC Distribution Width 14.2 % (11.5-14.5); Red Blood Cell (RBC) Count 3.09 mill/uL (4.20-5.40); White Blood Cell (WBC) Count 9.7 thou/uL (4.8-10.8)
[2021-01-07 20:12] LABS: ALT (SGPT) 10 U/L (8-55); AST (SGOT) 13 U/L (5-34); Albumin 3.3 g/dL (3.4-4.8); Alkaline Phosphatase 165 U/L (40-110); Anion Gap 14 mmol/L (10-20); BUN (Urea Nitrogen) 15 mg/dL (9.8-20.1); Bilirubin, Total 0.9 mg/dL (0.2-1.2); Calc. Creatinine Clearance 0 mL/min (70-130); Calcium 8.9 mg/dL (7.8-10.44); Carbon Dioxide 23 mmol/L (23-31); Chloride 100 mmol/L (98-107); Globulin 3.3 g/dL (2.4-3.5); Glucose 205 mg/dL (83-110); Potassium 3.7 mmol/L (3.5-5.1); Protein, Total 6.6 g/dL (5.8-8.1); Sodium 133 mmol/L (136-145)
[2021-01-07 20:32] LABS: Bilirubin Negative (Negative); Blood, Urine Trace (Negative); Clarity Clear (Clear); Glucose, Urine (Dipstick) Negative (Negative); Ketone, Urine Trace mg/dL (Negative); Leukocyte Negative (Negative); Nitrite Negative (Negative); Protein, Urine (Dipstick) 100 mg/dL (Neg-Trace); Specific Gravity, Urine 1.025 (1.005-1.030); Squamous Epithelial 0-3 HPF (0-3); WBC/HPF 0-3 HPF (0-3)
[2021-01-08 17:22] LABS: SARS-CoV-2 PCR by NAA Not Detected (NotDetected)
== END 2021-01-07 22:12 ==
LOC: MADERS 18:21
DX: R50.9 Fever, unspecified (principal); R00.0 Tachycardia, unspecified; R41.0 Disorientation, unspecified; Z20.822 Contact with and (suspected) exposure to COVID-19; M19.90 Unspecified osteoarthritis, unspecified site; E11.9 Type 2 diabetes mellitus without complications; I10 Essential (primary) hypertension
CPT/HCPCS: 71045; 80053; 83605; 83880; 84484; 85025; 87040; 87086; U0003; U0005; 36415; 81003; 81015; 87077; 87186; J7050

== ENCOUNTER 2021-09-29 14:34 | Outpatient (CLI) | payer MEDICARE ==
[2021-09-29 14:52] LABS: Hemoglobin 13.4 g/dL (12.0-16.0); Mean Corpuscular HGB CONC 31.7 g/dL (32.0-36.0); Mean Corpuscular Hemoglobin 28.8 pg (27.0-31.0); Mean Platelet Volume 7.5 fL (7.4-10.4); Platelet Count 152 thou/uL (130-400); RBC Distribution Width 12.5 % (11.5-14.5); Red Blood Cell (RBC) Count 4.66 mill/uL (4.20-5.40); White Blood Cell (WBC) Count 5.5 thou/uL (4.8-10.8)
[2021-09-29 15:07] LABS: ALT (SGPT) 15 U/L (8-55); AST (SGOT) 19 U/L (5-34); Albumin 3.8 g/dL (3.4-4.8); Alkaline Phosphatase 67 U/L (40-110); Anion Gap 18 mmol/L (10-20); BUN (Urea Nitrogen) 16 mg/dL (9.8-20.1); Bilirubin, Total 0.4 mg/dL (0.2-1.2); Calc. Creatinine Clearance 0 mL/min (70-130); Calcium 8.9 mg/dL (7.8-10.44); Carbon Dioxide 24 mmol/L (23-31); Chloride 100 mmol/L (98-107); Globulin 3.1 g/dL (2.4-3.5); Glucose 282 mg/dL (83-110); Potassium 4.2 mmol/L (3.5-5.1); Protein, Total 6.9 g/dL (5.8-8.1); Sodium 138 mmol/L (136-145)
[2021-09-29 22:17] LABS: Hemoglobin A1c 10.7 % (4.0-6.0)
[2021-09-29 22:34] LABS: Ferritin 210.51 ng/mL (10-291); Free T4 (Free Thyroxine) 0.96 ng/dL (0.70-1.48)
== END 2021-09-29 14:35 | disposition home or self-care (01) ==
LOC: MADLAB 14:34
PROVIDERS: ATTEND Family Medicine
DX: E11.9 Type 2 diabetes mellitus without complications (principal)
CPT/HCPCS: 80053; 82728; 83036; 84439; 84443; 85027

== ENCOUNTER 2023-09-04 05:58 | Emergency (ER) | payer OTHER ==
[2023-09-04] MEDS ORDERED: Sodium Chloride 0.9% 100 ML ONE (06:28)
[2023-09-04] MEDS ORDERED: cefTRIAXone (ROCEPHIN) 1 GM VIAL ONE (06:28)
[2023-09-04 06:30] LABS: Bilirubin Negative (Negative); Blood, Urine Large (Negative); Glucose, Urine (Dipstick) Negative (Negative); Ketone, Urine Negative (Negative); Leukocyte Large (Negative); Nitrite Negative (Negative); Protein, Urine (Dipstick) 30 mg/dL (Neg-Trace); Urobilinogen 0.2 mg/dL (Less than 2); pH, Urine 5.5 (5.0-9.0)
[2023-09-04 06:38] LABS: Bacteria/HPF 3+ HPF (None Seen); CAUTI Indications for Culture Dysuria,urgency,freq; Clarity Turbid (Clear); WBC/HPF Greater than 50 HPF (0-3); Yeast-Budding 3+ HPF (None Seen)
[2023-09-04 06:39] LABS: Urine Culture Reflex Yes Yes
[2023-09-04 06:40] LABS: Hematocrit 37.8 % (36.0-47.0); Hemoglobin 11.7 g/dL (12.0-16.0); Mean Corpuscular Hemoglobin 28.8 pg (27.0-31.0); Mean Corpuscular Volume 92.9 fl (78.0-98.0); Mean Platelet Volume 6.8 fL (7.4-10.4); Platelet Count 175 10x3/uL (130-400); Red Blood Cell (RBC) Count 4.07 mill/uL (4.20-5.40); White Blood Cell (WBC) Count 6.2 10x3/uL (4.8-10.8)
[2023-09-04 06:43] LABS: Eosinophils 4 % (0-10); Lymphocytes 16 % (21-51); MDiff Complete? YES; Monocytes 10 % (0-10); Neutrophil 70 % (42-75)
[2023-09-04 06:55] LABS: ALT (SGPT) 10 U/L (8-55); AST (SGOT) 14 U/L (5-34); Albumin 3.9 g/dL (3.4-4.8); Alkaline Phosphatase 56 U/L (40-110); Anion Gap 16 mmol/L (10-20); BUN (Urea Nitrogen) 13 mg/dL (9.8-20.1); Bilirubin, Total 0.4 mg/dL (0.2-1.2); Calc. Creatinine Clearance 0 mL/min (70-130); Calcium 9.2 mg/dL (7.8-10.44); Carbon Dioxide 28 mmol/L (23-31); Chloride 100 mmol/L (98-107); Estimated GFR 77; Globulin 3.1 g/dL (2.4-3.5); Glucose 121 mg/dL (83-110); Potassium 3.9 mmol/L (3.5-5.1); Sodium 140 mmol/L (136-145)
== END 2023-09-04 08:35 ==
LOC: MADERS 05:58
DX: M25.552 Pain in left hip (principal); N39.0 Urinary tract infection, site not specified; E11.9 Type 2 diabetes mellitus without complications; I10 Essential (primary) hypertension; Z79.84 Long term (current) use of oral hypoglycemic drugs; W18.30XA Fall on same level, unspecified, initial encounter
CPT/HCPCS: 71045; 80053; 81001; 85025; 87086; 96365; J0696

== ENCOUNTER 2024-06-10 17:24 | Emergency (ER) | payer MEDICARE ==
[2024-06-10 17:56] LABS: Bilirubin Negative (Negative); Blood, Urine Trace (Negative); Glucose, Urine (Dipstick) 100 mg/dL (Negative); Ketone, Urine Negative (Negative); Leukocyte Moderate (Negative); Nitrite Negative (Negative); Protein, Urine (Dipstick) 30 mg/dL (Neg-Trace); Urobilinogen 0.2 mg/dL (Less than 2); pH, Urine 6.5 (5.0-9.0)
[2024-06-10 18:02] LABS: Clarity Hazy (Clear)
[2024-06-10 18:03] LABS: Bacteria/HPF 3+ HPF (None Seen); CAUTI Indications for Culture Alt mental st,lethar; RBC/HPF 0-3 HPF (0-3); Squamous Epithelial 0-3 HPF (0-3); WBC/HPF Greater Than 50 HPF (0-3)
[2024-06-10 18:04] LABS: Urine Culture Reflex Yes Yes
[2024-06-10] MEDS ORDERED: Acetaminophen 325 MG TAB ONE (18:43)
[2024-06-10] MEDS ORDERED: cefTRIAXone (ROCEPHIN) 1 GM VIAL ONE (18:45)
== END 2024-06-10 20:45 | disposition short-term general hospital (02) ==
LOC: MADERS 17:24
DX: N39.0 Urinary tract infection, site not specified (principal); R65.10 Systemic inflammatory response syndrome (SIRS) of non-infectious origin without acute organ dysfunction; I10 Essential (primary) hypertension; E11.9 Type 2 diabetes mellitus without complications; Z79.84 Long term (current) use of oral hypoglycemic drugs; Z79.899 Other long term (current) drug therapy
CPT/HCPCS: 36415; 81001; 87040; 87077; 87086; 87186; 87428; 96365; J0696

== ENCOUNTER 2025-03-26 18:21 | Outpatient (CLI) | payer MEDICAID, MEDICARE ==
[2025-03-26 18:28] LABS: #Basophils 0.1 thou/uL (0.0-0.2); #Eosinophils 0.3 thou/uL (0.0-0.7); #Lymphocytes 2.0 thou/uL (1.20-3.40); #Monocytes 0.5 thou/uL (0.11-0.59); #Neutrophils 3.6 thou/uL (1.40-6.50); %Basophils 1.5 % (0.0-1.0); %Eosinophils 4.8 % (0.0-10.0); %Lymphocytes 30.7 % (21.0-51.0); %Monocytes 7.8 % (0.0-10.0); %Neutrophils 55.2 % (42.0-75.0); Hematocrit 37.8 % (36.0-47.0); Hemoglobin 11.9 g/dL (12.0-16.0); Mean Corpuscular Hemoglobin 28.7 pg (27.0-31.0); Mean Corpuscular Volume 91.2 fl (78.0-98.0); Platelet Count 177 10x3/uL (130-400); Red Blood Cell (RBC) Count 4.15 mill/uL (4.20-5.40); White Blood Cell (WBC) Count 6.5 10x3/uL (4.8-10.8)
[2025-03-26 18:50] LABS: ALT (SGPT) 13 U/L (Less than 34); AST (SGOT) 24 U/L (11-34); Albumin 3.6 g/dL (3.1-4.5); Alkaline Phosphatase 60 U/L (40-110); Anion Gap 17 mmol/L (10-20); BUN (Urea Nitrogen) 20 mg/dL (9.8-20.1); Bilirubin, Total 0.3 mg/dL (0.3-1.2); Calc. Creatinine Clearance 0 mL/min (70-130); Calcium 9.0 mg/dL (7.8-10.44); Carbon Dioxide 24 mmol/L (23-31); Chloride 103 mmol/L (98-107); Globulin 3.4 g/dL (2.4-3.5); Glucose 120 mg/dL (83-110); Potassium 4.8 mmol/L (3.5-5.1); Sodium 139 mmol/L (136-145)
== END 2025-03-26 18:22 | disposition home or self-care (01) ==
LOC: MADLAB 18:21
PROVIDERS: ATTEND Nurse Practitioner Primary Care
DX: N39.0 Urinary tract infection, site not specified (principal); K59.00 Constipation, unspecified; M62.59 Muscle wasting and atrophy, not elsewhere classified, multiple sites
CPT/HCPCS: 80053; 85025

== ENCOUNTER 2025-04-03 15:14 | Outpatient (CLI) | payer MEDICARE, MEDICAID ==
[2025-04-03 15:24] LABS: Glucose, Urine (Dipstick) Negative (Negative); Leukocyte Large (Negative); Protein, Urine (Dipstick) 30 mg/dL (Neg-Trace); Specific Gravity, Urine 1.010 (1.005-1.030)
[2025-04-03 15:34] LABS: Bacteria/HPF Rare-Few HPF (None Seen); RBC/HPF None Seen HPF (0-3); WBC/HPF 0-3 HPF (0-3)
== END 2025-04-03 15:15 | disposition home or self-care (01) ==
LOC: MADLAB 15:14
PROVIDERS: ATTEND Nurse Practitioner Primary Care
DX: M54.50 Low back pain, unspecified (principal); Z87.440 Personal history of urinary (tract) infections
CPT/HCPCS: 81001; 87077; 87086; 87186

== ENCOUNTER 2025-05-01 17:51 | Emergency (ER) | payer OTHER, MEDICARE | END 2025-05-01 19:08 | disposition short-term general hospital (02) | LOC: MADERS 17:51 | DX: S09.90XA Unspecified injury of head, initial encounter (principal); I10 Essential (primary) hypertension; E11.9 Type 2 diabetes mellitus without complications; Z86.73 Personal history of transient ischemic attack (TIA), and cerebral infarction without residual deficits; Z79.899 Other long term (current) drug therapy; Z79.84 Long term (current) use of oral hypoglycemic drugs; W05.0XXA Fall from non-moving wheelchair, initial encounter | CPT/HCPCS: 70450; 72125 ==